=== PATIENT | female | born 1945 | race Caucasian/White ===

== ENCOUNTER → 2017-05-08 | Outpatient (CLI) | payer OTHER, BC | LOC: SLEEPLAB 14:31 | DX: G47.33 Obstructive sleep apnea (adult) (pediatric) (principal) ==

== ENCOUNTER → 2018-07-31 | Outpatient (CLI) | payer OTHER, BC ==
[~2018-07-31] VITALS: Ht 165.1 cm; Wt 63.5 kg
[~2018-07-31] MED LIST: ARICEPT 5 MG TAB5 MG PO; ARIMIDEX1 MG PO; ASPIR 8181 MG PO; ATORVASTATIN CA40 MG PO; CARVEDILOL12.5 MG PO; COZAAR 25 MG TA25 M1 PO; FLONASE 0.05%50 MCG INH; FOSAMAX 70 MG T70 MG PO; LEXAPRO20 MG PO; SYNTHROID50 MCG PO; TRAZODONE HCL50 MG PO; VENTOLIN HFA 1818 GM INH; XANAX 0.5 MG0.5 MG PO
[2018-07-31 08:40] VITALS: BP 176/77
[2018-07-31 08:55] LABS: HEMATOCRIT 36.7 % (37.0-47.0); HEMOGLOBIN 12.7 gm/dL (12.0-15.0); MCH 32.5 pg (26.0-34.0); MCHC 34.6 g/dL (28.0-37.0); MCV 93.9 fL (80.0-100.0); RBC 3.91 mil/uL (4.20-5.00); RDW 12.5 % (10.5-14.5); WBC 6.2 thou/uL (4.0-11.0)
[2018-07-31 09:06] LABS: CALCIUM 9.7 mg/dL (8.5-10.1); POTASSIUM 3.8 mmol/L (3.5-5.1)
[2018-07-31 09:08] LABS: APTT 26.8 Seconds (24.5-32.8); INR 1.1; PROTIME 11.2 Seconds (9.3-11.4)
== END | disposition home or self-care (01) ==
LOC: SPEC 08:14
PROVIDERS: Radiology Vascular & Interventional Radiology
DX: S22.088A Other fracture of T11-T12 vertebra, initial encounter for closed fracture (principal); M54.9 Dorsalgia, unspecified; E78.00 Pure hypercholesterolemia, unspecified; J45.909 Unspecified asthma, uncomplicated; F32.9 Major depressive disorder, single episode, unspecified; Z98.890 Other specified postprocedural states; Z85.3 Personal history of malignant neoplasm of breast; Z79.899 Other long term (current) drug therapy; Z79.82 Long term (current) use of aspirin; X58.XXXA Exposure to other specified factors, initial encounter; Y93.89 Activity, other specified; Y92.89 Other specified places as the place of occurrence of the external cause; Y99.8 Other external cause status

== ENCOUNTER 2018-08-08 11:35 | Emergency (ER) | payer OTHER, BC ==
[~2018-08-08] VITALS: Ht 165.1 cm; Wt 64.4 kg
[2018-08-08 13:28] LABS: CALCIUM 9.5 mg/dL (8.5-10.1); CREATININE 1.1 mg/dL (0.6-1.0); POTASSIUM 3.8 mmol/L (3.5-5.1)
[2018-08-08 13:33] LABS: TOTAL BILIRUBIN 0.3 mg/dL (<0.1-1.0); TOTAL PROTEIN 6.3 g/dL (6.4-8.2)
[2018-08-08 13:40] LABS: ABSOLUTE NEUTROPHILS 4.3 thou/uL (1.4-8.2); ALBUMIN 3.2 g/dL (3.4-5.0); BASOPHILS 0.3 % (0.0-2.0); EOSINOPHILS 2.5 % (0.0-3.0); HEMATOCRIT 37.2 % (37.0-47.0); HEMOGLOBIN 12.8 gm/dL (12.0-15.0); LYMPHOCYTES 17.2 % (24.0-44.0); MCH 32.3 pg (26.0-34.0); MCHC 34.5 g/dL (28.0-37.0); MCV 93.6 fL (80.0-100.0); MONOCYTES 6.8 % (1.0-8.0); PLATELET COUNT 196 thou/uL (150-400); POLYS 73.2 % (36.0-66.0); RBC 3.97 mil/uL (4.20-5.00); RDW 12.7 % (10.5-14.5); WBC 5.9 thou/uL (4.0-11.0)
[2018-08-08] MEDS ORDERED: HYDROCODONE-AP1 EAC6 PO (14:43)
[2018-08-08] MEDS ORDERED: NORFLEX100 MG PO (14:43)
[2018-08-08 15:08] LABS: URINE BILIRUBIN NEGATIVE (Negative); URINE BLOOD NEGATIVE (Negative); URINE CLARITY CLEAR; URINE COLOR YELLOW; URINE GLUCOSE-RANDOM* NEGATIVE (Negative); URINE KETONES NEGATIVE (Negative); URINE LEUKOCYTES-REFLEX NEGATIVE (Negative); URINE NITRITE-REFLEX NEGATIVE (Negative); URINE PROTEIN (DIPSTICK) NEGATIVE (Negative); URINE SPECIFIC GRAVITY 1.015 (1.005-1.035); URINE UROBILINOGEN 0.2 E.U./dl (0.2-1.0)
[2018-08-08 16:20] VITALS: BP 167/77
== END 2018-08-08 19:13 | disposition home or self-care (01) ==
LOC: ER 11:35
PROVIDERS: Emergency Medicine
DX: S22.080A Wedge compression fracture of T11-T12 vertebra, initial encounter for closed fracture (principal); R10.13 Epigastric pain; J45.909 Unspecified asthma, uncomplicated; F32.9 Major depressive disorder, single episode, unspecified; E78.00 Pure hypercholesterolemia, unspecified; E03.9 Hypothyroidism, unspecified; Z98.890 Other specified postprocedural states; Z90.89 Acquired absence of other organs; Z88.0 Allergy status to penicillin; Z88.2 Allergy status to sulfonamides; Z85.3 Personal history of malignant neoplasm of breast; Z90.12 Acquired absence of left breast and nipple; W01.0XXA Fall on same level from slipping, tripping and stumbling without subsequent striking against object, initial encounter; Y92.89 Other specified places as the place of occurrence of the external cause; Y93.89 Activity, other specified; Y99.8 Other external cause status